=== PATIENT | male | born 1990 | race African-American/Black ===

== ENCOUNTER 2019-05-27 09:12 | Emergency (ER) | payer OTHER ==
[~2019-05-27] VITALS: Ht 177.8 cm; Wt 103.0 kg
[2019-05-27] MEDS ORDERED: CYCLOBENZAPRINE 10MG TABLET PO ONE (11:15)
[2019-05-27] MEDS ORDERED: IBUPROFEN 800MG TABLET PO ONE (11:15)
[2019-05-27 11:29] VITALS: BP 122/76
== END 2019-05-27 11:30 | disposition home or self-care (01) ==
LOC: ER 09:12
DX: M54.42 Lumbago with sciatica, left side (principal); M54.41 Lumbago with sciatica, right side; Z76.0 Encounter for issue of repeat prescription; F41.9 Anxiety disorder, unspecified; F32.9 Major depressive disorder, single episode, unspecified; Z88.6 Allergy status to analgesic agent
CPT/HCPCS: 99283

== ENCOUNTER 2019-06-20 04:14 | Emergency (ER) | payer OTHER ==
[~2019-06-20] VITALS: Ht 180.3 cm; Wt 90.0 kg
[2019-06-20] MEDS ORDERED: EPINEPHRINE 0.1MG/ML (1:10,000) 10ML SYR ONE ×3 (04:29→04:54)
[2019-06-20] MEDS ORDERED: DOPAMINE 400MG/250ML PREMIX 250 ML IV ONE (04:34)
[2019-06-20] MEDS ORDERED: NALOXONE HCL 1 MG/ML 2ML VIAL ONE ×2 (04:55→04:56)
[2019-06-20 05:18] VITALS: BP 0/0
== END 2019-06-20 05:00 | disposition expired ==
LOC: ER 04:14
DX: I46.9 Cardiac arrest, cause unspecified (principal); F99 Mental disorder, not otherwise specified; J45.909 Unspecified asthma, uncomplicated; F19.10 Other psychoactive substance abuse, uncomplicated; Z88.6 Allergy status to analgesic agent
CPT/HCPCS: 31500; 36680; 82962; 92950; 99285; J1265; J2310; J3490